=== PATIENT | female | born 1980 ===

== ENCOUNTER 2017-01-25 18:26 | Emergency (ER) | payer OTHER, MEDICAID ==
[2017-01-25 18:42] VITALS: BP 127/67; PULSE 101; RESP 20; TEMP 98.1; O2SAT 99
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
[2017-01-25] MEDS ORDERED: Naproxen 500 MG TAB PO ONE (20:59)
[2017-01-25] MEDS: Naproxen 500 MG TAB PO STA (21:06)
--- NOTE | 2017-01-26 09:06 | CT ---
PROCEDURE: CT Cervical Spine without contrast HISTORY: [facility] COMPARISON: None available. TECHNIQUE: Axial computed tomography images were obtained of the cervical spine without the use of intravenous contrast. Coronal and sagittal reformatted images were created and reviewed. Radiation dose: Total exam DLP = 380.38 mGy-cm. FINDINGS: VERTEBRAE: No fracture. Normal alignment. No destructive bony lesion. DISCS/SPINAL CANAL/NEURAL FORAMINA: Minimal narrowing of C5-6 intervertebral disc space with osteophyte formation consistent with degenerative disc disease. Bilateral uncovertebral osteoarthritis at C5-6. Remaining disc spaces are maintained in height. PARASPINAL SOFT TISSUES: Unremarkable. OTHER FINDINGS: None. IMPRESSION: No fracture/ dislocation. Degenerative disc disease C5-6.Otherwise unremarkable. Preliminary interpretation of this examination was reported by [facility] at 9:38 p.m. on 01/25/2017. There is concurrence of this report with the preliminary interpretation.
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
== END 2017-01-25 22:03 | disposition home or self-care (01) ==
LOC: H.ER 18:26
DX: M54.2 Cervicalgia (principal); M54.9 Dorsalgia, unspecified; R07.9 Chest pain, unspecified; S49.91XA Unspecified injury of right shoulder and upper arm, initial encounter; V43.62XA Car passenger injured in collision with other type car in traffic accident, initial encounter; Y92.410 Unspecified street and highway as the place of occurrence of the external cause

== ENCOUNTER 2018-07-16 09:05 | Emergency (ER) | payer MEDICAID, OTHER ==
[2018-07-16 09:06] VITALS: BMI 26.5
[2018-07-16 09:18] VITALS: O2SAT 100
--- NOTE | 2018-07-16 10:41 | ED PDOC ---
Upper Extremity Pain/Injury Time Seen by Provider: 07/16/18 09:50 Chief Complaint (Nursing): Finger,Hand,&Wrist Chief Complaint (Provider): Right hand pain History Per: Patient History/Exam Limitations: no limitations Onset/Duration Of Symptoms: Days Current Symptoms Are (Timing): Still Present Additional History Per: Patient Additional Complaint(s): 37yo female, comes to ER for evaluation of right wrist pain x 1 week. She denies any trauma and states pain is worse in the morning and with movement. Patient denies taking any medications for pain. She also denies any weakness, numbness and tingling and offers no other medical complaints. PMD: Dr. Hagen Past Medical History Reviewed: Historical Data, Nursing Documentation, Vital Signs Vital Signs: Last Vital Signs Temp 98.0 F 07/16/18 09:17 Pulse 83 07/16/18 09:17 Resp 17 07/16/18 09:17 BP 119/72 07/16/18 09:17 Pulse Ox 100 07/16/18 09:17 - Medical History PMH: Anxiety (NO MEDS), Depression (NO MEDS), Fractures (LT SHOULDER) Denies: Asthma, Colonic Polyps, Diabetes, Hepatitis, HIV, HTN, Chronic Kidney Disease, Seizures, Sexually Transmitted Disease, Sleep Apnea, TIA - Surgical History Surgical History: No Surg Hx Denies: Endoscopy - Family History Family History: States: No Known Family Hx - Immunization History Hx Tetanus Toxoid Vaccination: No Hx Influenza Vaccination: No Hx Pneumococcal Vaccination: No - Home Medications Home Medications: Ambulatory Orders Medication Instructions Recorded Naproxen [Naprosyn Tab] 1 tab PO Q8 PRN #21 tab 01/25/17 Omeprazole 20 mg PO DAILY 03/07/18 Naproxen [Naprosyn] 500 mg PO BID PRN #15 tablet 07/16/18 - Allergies Allergies/Adverse Reactions: Allergies Allergy/AdvReac Type Severity Reaction Status Date / Time seasonal Allergy ITCHING Uncoded 03/07/18 07:19 Review of Systems ROS Statement: Except As Marked, All Systems Reviewed And Found Negative Musculoskeletal: Positive for: Hand Pain (right wrist pain) Neurological: Negative for: Weakness, Numbness Physical Exam - Reviewed Nursing Documentation Reviewed: Yes Vital Signs Reviewed: Yes - Physical Exam Appears: Positive for: Non-toxic, No Acute Distress Head Exam: Positive for: ATRAUMATIC, NORMAL INSPECTION, NORMOCEPHALIC Skin: Positive for: Normal Color Eye Exam: Positive for: Normal appearance Neck: Positive for: Supple Cardiovascular/Chest: Positive for: Regular Rate, Rhythm Respiratory: Positive for: Normal Breath Sounds Pulses-Radial (L): 2+ Pulses-Radial (R): 2+ Extremity: Positive for: Normal ROM (FROM of right wrist), Tenderness (right lateral wrist). Negative for: Deformity, Swelling Neurologic/Psych: Positive for: Alert, Oriented. Negative for: Motor/Sensory Deficits - ECG O2 Sat by Pulse Oximetry: 100 (RA) Pulse Ox Interpretation: Normal Medical Decision Making Medical Decision Making: Impression: Right wrist pain Plan: * XR Right wrist * XR Right hand * Motrin 600mg PO * Flexeril 10mg PO Accession No. : [id number] Patient Name / ID : STEFAN FOUNTAIN / [id number] Exam Date : 07/16/2018 10:09:50 ( Approved ) Study Comment : Sex / Age : F / 37Y Creator : Amanda Wilkinson MD Dictator : Amanda Wilkinson MD Field Operations Coordinator : Punch Machine Operator : Amanda Wilkinson MD Approver2 : Report Date : 07/16/2018 12:45:20 My Comment : PROCEDURE: Right Wrist Radiographs. HISTORY: Wrist pain COMPARISON: None available. FINDINGS: BONES: No acute displaced fracture. JOINTS: No dislocation. SOFT TISSUES: Unremarkable. No evidence of radiopaque foreign body OTHER FINDINGS: None. IMPRESSION: No acute displaced fracture, dislocation, or significant joint effusion identified. If symptoms persist, or if there is continued clinical concern, x-ray follow-up in 7-10 days should be considered. Accession No. : [id number] Patient Name / ID : STEFAN FOUNTAIN / [id number] Exam Date : 07/16/2018 10:17:16 ( Approved ) Study Comment : Sex / Age : F / 37Y Creator : Amanda Wilkinson MD Dictator : Amanda Wilkinson MD Field Operations Coordinator : Punch Machine Operator : Amanda Wilkinson MD Approver2 : Report Date : 07/16/2018 12:47:07 My Comment : PROCEDURE: Right Hand Radiographs. HISTORY: Wrist pain COMPARISON: None available. FINDINGS: BONES: No acute displaced fracture. JOINTS: No dislocation. SOFT TISSUES: Unremarkable. No evidence of radiopaque foreign body. OTHER FINDINGS: None. IMPRESSION: No acute displaced fracture, dislocation, or significant joint effusion identified. If symptoms persist, or if there is continued clinical concern, x-ray follow-up in 7-10 days should be considered. Wrist splint placed. Scribe Attestation: Documented by Suyapa Irizarry, acting as a scribe for Alice Car MD. Provider Scribe Attestation: All medical record entries made by the Scribe were at my direction and personally dictated by me. I have reviewed the chart and agree that the record accurately reflects my personal performance of the history, physical exam, medical decision making, and the department course for this patient. I have also personally directed, reviewed, and agree with the discharge instructions and disposition. Disposition - Clinical Impression Clinical Impression: Wrist pain - Disposition Referrals: Ramos Hayden MD [Family Provider] - Disposition: Routine/Home Disposition Time: 13:29 Condition: IMPROVED Prescriptions: Naproxen [Naprosyn] 500 mg PO BID PRN #15 tablet PRN Reason: Pain, Moderate (4-7) Instructions: Wrist Sprain (DC) Forms: [email or web address] (Yoruba) Print Language: URDU
--- NOTE | 2018-07-16 12:46 | RAD ---
PROCEDURE: Right Wrist Radiographs. HISTORY: Wrist pain COMPARISON: None available. FINDINGS: BONES: No acute displaced fracture. JOINTS: No dislocation. SOFT TISSUES: Unremarkable. No evidence of radiopaque foreign body OTHER FINDINGS: None. IMPRESSION: No acute displaced fracture, dislocation, or significant joint effusion identified. If symptoms persist, or if there is continued clinical concern, x-ray follow-up in 7-10 days should be considered.
--- NOTE | 2018-07-16 12:48 | RAD ---
PROCEDURE: Right Hand Radiographs. HISTORY: Wrist pain COMPARISON: None available. FINDINGS: BONES: No acute displaced fracture. JOINTS: No dislocation. SOFT TISSUES: Unremarkable. No evidence of radiopaque foreign body. OTHER FINDINGS: None. IMPRESSION: No acute displaced fracture, dislocation, or significant joint effusion identified. If symptoms persist, or if there is continued clinical concern, x-ray follow-up in 7-10 days should be considered.
[2018-07-16 14:25] VITALS: BP 125/80; PULSE 75; RESP 16; TEMP 98.1
== END 2018-07-16 14:29 | disposition home or self-care (01) ==
LOC: H.ER 09:05
DX: M25.531 Pain in right wrist (principal); Z86.59 Personal history of other mental and behavioral disorders